=== PATIENT | female | born 1975 | race Caucasian/White ===

== ENCOUNTER → 2024-05-21 07:42 | Outpatient (CLI) | payer BC, SELFPAY ==
--- NOTE | 2024-05-21 | DI.US.S_ITS ---
PROCEDURE: US PELVIC COMPLETE INDICATIONS: PERIMENOPAUSE,IRREGULAR MENSTRUAL BLEEDING TECHNIQUE: Real-time scanning was performed of the pelvic organs, with image documentation. Additional endovaginal scanning was necessary due to incomplete visualization of the adnexal and endometrial structures by transabdominal scanning. COMPARISON: None. FINDINGS: Uterus: 8.3 x 2.7 x 4.1 cm. Anteverted positioning. Endometrium measures 2-3 mm. Right mid intramural fibroid measures 0.7 cm. Ovaries: No ovarian enlargement bilaterally. Other: There are nabothian cysts. IMPRESSION: Endometrium is nonthickened. No acute uterine or ovarian abnormality. Dictated by: Jesus Forrester M.D. on 05/21/2024 at 12:59 Approved by: Jesus Forrester M.D. on 05/21/2024 at 13:01
== END ==
LOC: US 07:45
PROVIDERS: PCP Registered Nurse; Referring Provider Registered Nurse; Visit Provider Registered Nurse
DX: N95.1 Menopausal and female climacteric states (principal); N92.6 Irregular menstruation, unspecified; D25.1 Intramural leiomyoma of uterus; N88.8 Other specified noninflammatory disorders of cervix uteri
CPT/HCPCS: 76830; 76856